=== PATIENT | male | born 1955 | race Caucasian/White ===

== ENCOUNTER 2017-07-15 14:02 | Inpatient (IN) | payer MEDICARE, MEDICAID ==
[~2017-07-15] VITALS: Ht 167.6 cm; Wt 65.9 kg
[~2017-07-15 14:02] MED LIST: AMLO-511 PO; ATOR10TA84 PO; CARB-39 PO; DSS100 PO; LISI-661 PO; OMEP20 PO; QUET25TA PO; ROPI1TAB11 PO; VITAD1000 PO
[2017-07-15] MEDS ORDERED: ATOR10TA84 PO (15:38)
[2017-07-15] MEDS ORDERED: APIX5TAB PO (15:38)
[2017-07-15] MEDS ORDERED: METO25 PO (15:38)
[2017-07-15] MEDS ORDERED: CARB-101 PO (15:38)
[2017-07-15 15:58] LABS: APPEARANCE,URINE CLEAR (CLEAR); GLUCOSE, URINE (UA) NEGATIVE (NEGATIVE); KETONES,URINE NEGATIVE (NEGATIVE); LEUKOCYTE ESTERASE ,URINE NEGATIVE (NEGATIVE); OCCULT BLOOD,URINE NEGATIVE (NEGATIVE); PROTEIN,URINE NEGATIVE (NEGATIVE)
[2017-07-15 16:12] LABS: BASOPHILS % (AUTO) 0.4 % (0.0-2.0); EOSINOPHILS % (AUTO) 0.3 % (1.0-6.0); HEMOGLOBIN 14.2 g/dL (13.5-17.5); LYMPHOCYTES # (AUTO) 1.2 K/uL (1.0-4.8); LYMPHOCYTES % (AUTO) 10.6 % (22.0-44.0); MEAN CORPUSCULAR HEMOGLOBIN 33.5 pg (26.0-34.0); MEAN CORPUSCULAR HGB CONC 34.7 G/dL (31.0-37.0); MEAN CORPUSCULAR VOLUME 97 fL (80-100); MONOCYTES # (AUTO) 0.7 K/uL (0.1-1.0); MONOCYTES % (AUTO) 6.6 % (2.0-9.0); NEUTROPHILS % (AUTO) 82.1 % (40.0-70.0); PLATELET COUNT (AUTO) 189 K/uL (150-450); RED BLOOD CELL COUNT(AUTO) 4.24 MIL/uL (4.50-5.90); RED CELL DISTRIBUTION WIDTH 12.5 % (11.5-14.5)
[2017-07-15 16:18] LABS: RBC,URINE None Seen /HPF (0-2); SQUAMOUS EPITHELIAL CELL,UR Few /LPF (None Seen); WBC,URINE None Seen /HPF (0-5)
[2017-07-15 16:43] LABS: ANION GAP 9 mmol/L (8-16); CALCIUM, TOTAL 9.1 mg/dL (8.8-10.5); CARBON DIOXIDE 28 mmol/L (22-29); CHLORIDE 103 mmol/L (98-107); CREATININE 1.18 mg/dL (0.60-1.30); GLOMERULAR FILTR. RATE CALC > 60 mL/min (>60); SODIUM SERUM 140 mmol/L (136-145); UREA NITROGEN, BLOOD 17 mg/dL (7-18)
[2017-07-15 16:52] LABS: ALANINE AMINOTRANSFERASE 15 U/L (12-78); ALBUMIN 3.8 g/dL (3.4-5.0); ASPARTATE AMINOTRANSFERASE 13 U/L (15-37); BILIRUBIN,TOTAL 0.4 mg/dL (0.1-1.0); TOTAL PROTEIN, SERUM 7.3 g/dL (6.4-8.2)
[2017-07-15] MEDS ORDERED: ZOLPIDEM TARTRATE 10 MG TABLET PO PRN (17:00)
[2017-07-15] MEDS ORDERED: LORazepam 2 MG TABLET PO PRN (17:00)
[2017-07-15] MEDS ORDERED: ChlorproMAZINE HCL 100 MG TABLET PO PRN (17:00)
[2017-07-15] MEDS: QUEtiapine FUMARATE 100 MG TABLET PO SCH (17:46)
[2017-07-15 17:50] LABS: CHOL/HDL RATIO 3.2 (4.2-7.3); THYROID STIMULATING HORMONE 1.08 uIU/mL (0.36-3.74)
[2017-07-15 22:02] VITALS: BP 145/97
[2017-07-16 00:10] VITALS: BP 145/98
[2017-07-16] MEDS: OMEPRAZOLE 20 MG CAPSULE PO SCH (06:27)
[2017-07-16] MEDS ORDERED: CloNIDine HCL 0.1 MG TABLET PO PRN (07:00)
[2017-07-16] MEDS ORDERED: ALBUTEROL SULFATE HFA 90 MCG/PUFF 8 GM INHALER IH PRN (07:00)
[2017-07-16] MEDS ORDERED: ACETAMINOPHEN 325 MG TABLET PO PRN (07:00)
[2017-07-16] MEDS ORDERED: ONDANSETRON HCL 4 MG TABLET PO PRN (07:00)
[2017-07-16] MEDS ORDERED: MAGNESIUM HYDROXIDE SUSPENSION 30 ML UDCUP PO PRN (07:00)
[2017-07-16] MEDS ORDERED: MAG HYDROX/AL HYDROX/SIMETH ES 30 ML SUSPENSION UDCUP PO PRN (07:00)
[2017-07-16] MEDS ORDERED: LOPERAMIDE HCL 2 MG CAPSULE PO PRN (07:00)
[2017-07-16] MEDS ORDERED: BACITRACIN 28.4 GM OINTMENT TP PRN (07:00)
[2017-07-16] MEDS ORDERED: PETROLATUM,WHITE 71 GM JELLY TP PRN (07:00)
[2017-07-16] MEDS ORDERED: BENZOCAINE/MENTHOL LOZENGE [8 LOZENGES/PACKET] MM PRN (07:15)
[2017-07-16] MEDS: QUEtiapine FUMARATE 100 MG TABLET PO SCH ×3 (09:00→18:47)
[2017-07-16] MEDS: ROPINIRole HCL 1 MG TABLET PO SCH ×3 (09:00→18:47)
[2017-07-16] MEDS: APIXABAN 5 MG TABLET PO SCH ×2 (09:00→18:47)
[2017-07-16] MEDS ORDERED: METOPROLOL TARTRATE 25 MG TABLET PO SCH (09:00)
[2017-07-16] MEDS: LISINOPRIL 10 MG TABLET PO SCH (09:00)
[2017-07-16] MEDS: CARBIDOPA/LEVODOPA 25-250 MG TABLET PO SCH ×3 (09:00→18:47)
[2017-07-16] MEDS: DOCUSATE SODIUM 100 MG CAPSULE PO SCH (09:00)
[2017-07-16] MEDS: ATORVASTATIN CALCIUM 10 MG TABLET PO SCH (09:01)
[2017-07-16] MEDS: AmLODIPine BESYLATE 5 MG TABLET PO SCH (09:01)
[2017-07-16] MEDS: CHOLECALCIFEROL (VIT D3) 1,000 UNITS TABLET PO SCH (09:01)
[2017-07-16 09:13] VITALS: BP 140/79
[2017-07-16] MEDS: IBUPROFEN 600 MG TABLET PO PRN (09:13)
[2017-07-16 10:00] VITALS: BP 140/90
[2017-07-16 18:44] VITALS: BP 138/93
[2017-07-16] MEDS ORDERED: ATORVASTATIN CALCIUM 10 MG TABLET PO SCH (21:00)
[2017-07-17] MEDS: OMEPRAZOLE 20 MG CAPSULE PO SCH (07:02)
[2017-07-17 07:25] VITALS: BP 130/93
[2017-07-17 08:50] VITALS: BP 132/89
[2017-07-17] MEDS: ROPINIRole HCL 1 MG TABLET PO SCH ×3 (11:12→17:12)
[2017-07-17] MEDS: APIXABAN 5 MG TABLET PO SCH ×2 (11:12→17:12)
[2017-07-17] MEDS: ATORVASTATIN CALCIUM 10 MG TABLET PO SCH (11:12)
[2017-07-17] MEDS: AmLODIPine BESYLATE 5 MG TABLET PO SCH (11:12)
[2017-07-17] MEDS: LISINOPRIL 10 MG TABLET PO SCH (11:12)
[2017-07-17] MEDS: DOCUSATE SODIUM 100 MG CAPSULE PO SCH (11:12)
[2017-07-17] MEDS: METOPROLOL TARTRATE 25 MG TABLET PO SCH ×2 (11:12→17:12)
[2017-07-17] MEDS: CHOLECALCIFEROL (VIT D3) 1,000 UNITS TABLET PO SCH (11:13)
[2017-07-17] MEDS: CARBIDOPA/LEVODOPA 25-250 MG TABLET PO SCH ×3 (11:13→17:12)
[2017-07-17] MEDS: MULTIVITAMINS WITH MINERALS, THERAPEUTIC TABLET PO SCH (11:13)
[2017-07-17] MEDS: QUEtiapine FUMARATE 100 MG TABLET PO SCH ×3 (11:24→17:13)
[2017-07-17] MEDS: IBUPROFEN 600 MG TABLET PO PRN (11:26)
[2017-07-17 16:19] VITALS: BP 124/69
[2017-07-18 05:30] VITALS: BP 94/56
[2017-07-18 06:10] VITALS: BP 93/59
[2017-07-18] MEDS: OMEPRAZOLE 20 MG CAPSULE PO SCH (06:54)
[2017-07-18 08:00] VITALS: BP 105/63
[2017-07-18 08:22] LABS: APPEARANCE,URINE CLEAR (CLEAR); GLUCOSE, URINE (UA) NEGATIVE (NEGATIVE); KETONES,URINE NEGATIVE (NEGATIVE); LEUKOCYTE ESTERASE ,URINE NEGATIVE (NEGATIVE); OCCULT BLOOD,URINE NEGATIVE (NEGATIVE); PH,URINE 5.5 (5.0-8.0); PROTEIN,URINE NEGATIVE (NEGATIVE)
[2017-07-18] MEDS: QUEtiapine FUMARATE 100 MG TABLET PO SCH ×2 (08:25→13:31)
[2017-07-18] MEDS: ROPINIRole HCL 1 MG TABLET PO SCH ×2 (08:25→13:30)
[2017-07-18] MEDS: DOCUSATE SODIUM 100 MG CAPSULE PO SCH (08:25)
[2017-07-18] MEDS: CHOLECALCIFEROL (VIT D3) 1,000 UNITS TABLET PO SCH (08:25)
[2017-07-18] MEDS: AmLODIPine BESYLATE 5 MG TABLET PO SCH (08:25)
[2017-07-18] MEDS: MULTIVITAMINS WITH MINERALS, THERAPEUTIC TABLET PO SCH (08:25)
[2017-07-18] MEDS: APIXABAN 5 MG TABLET PO SCH (08:25)
[2017-07-18] MEDS: CARBIDOPA/LEVODOPA 25-250 MG TABLET PO SCH ×2 (08:26→13:30)
[2017-07-18] MEDS: ATORVASTATIN CALCIUM 10 MG TABLET PO SCH (08:26)
[2017-07-18] MEDS: LISINOPRIL 10 MG TABLET PO SCH (08:28)
[2017-07-18] MEDS: METOPROLOL TARTRATE 25 MG TABLET PO SCH (08:29)
[2017-07-18 08:39] LABS: ADD UA MICROSCOPIC NO
[2017-07-18 16:21] VITALS: BP 115/69
== END 2017-07-18 16:45 | DRG 885 ==
LOC: EMS 14:05 → 3EX 17:28
PROVIDERS: ADMIT Psychiatry & Neurology Psychiatry; ATTEND Psychiatry & Neurology Psychiatry
DX: F20.0 Paranoid schizophrenia (principal); G20 Parkinson's disease; F03.90 Unspecified dementia, unspecified severity, without behavioral disturbance, psychotic disturbance, mood disturbance, and anxiety; I48.91 Unspecified atrial fibrillation; E55.9 Vitamin D deficiency, unspecified; I10 Essential (primary) hypertension; E78.5 Hyperlipidemia, unspecified; J44.9 Chronic obstructive pulmonary disease, unspecified; G47.00 Insomnia, unspecified; M19.90 Unspecified osteoarthritis, unspecified site; K59.09 Other constipation; K21.9 Gastro-esophageal reflux disease without esophagitis; Z72.0 Tobacco use; Z71.6 Tobacco abuse counseling; Z79.899 Other long term (current) drug therapy; Z91.19 Patient's noncompliance with other medical treatment and regimen
CPT/HCPCS: 83036; 84443; 87081; 93005; 99285

== ENCOUNTER 2018-11-10 19:05 | Emergency (ER) | payer MEDICARE, OTHER ==
[~2018-11-10] VITALS: Ht 172.7 cm; Wt 110.0 kg
[~2018-11-10 19:05] MED LIST changes: +APIX5TAB PO; +CARB-101 PO; -CARB-39 PO; +METO25 PO
[2018-11-10 20:04] LABS: GLUCOSE,POINT OF CARE 89 MG/DL (70-110)
[2018-11-11] MEDS ORDERED: METOPROLOL TARTRATE 50 MG TABLET PO ONE (00:30)
[2018-11-11 01:27] VITALS: BP 114/71
== END 2018-11-11 02:37 | disposition home or self-care (01) ==
LOC: EMS 19:06
DX: S00.83XA Contusion of other part of head, initial encounter (principal); I10 Essential (primary) hypertension; E78.00 Pure hypercholesterolemia, unspecified; F20.9 Schizophrenia, unspecified; Z79.899 Other long term (current) drug therapy; W18.39XA Other fall on same level, initial encounter; Y93.89 Activity, other specified; Y92.89 Other specified places as the place of occurrence of the external cause; Y99.8 Other external cause status
CPT/HCPCS: 70450; 72125; 93005